=== PATIENT | female | born 1990 | race Two or more races ===

== ENCOUNTER 2024-09-03 10:05 | Inpatient (IN) | payer MEDICAID, SELFPAY ==
[2024-09-03] VITALS (14 sets, daily range): BP systolic 115–130; BP diastolic 51–79; PULSE 74–92; RESP 15–20; TEMP 36.7–37; O2SAT 98–100; BMI 29.9
[2024-09-03] MEDS: RINGERS LACTATED 1000 ML 1,000 ML 100 ML IV ×2 (10:48→12:09)
[2024-09-03 11:38] LABS: Basophils # (Auto) 0.0 Thou/mm3 (0.0-0.2); Basophils % (Auto) 0 % (0-2.5); Eosinophils # (Auto) 0.0 Thou/mm3 (0.0-0.5); Eosinophils % (Auto) 0 % (0-10); Hematocrit 36.9 % (36.0-46.0); Hemoglobin 12.7 g/dL (12.0-16.0); Immature Granulocytes Auto 0.09 Thou/mm3 (0.00-0.00); Lymphocytes # (Auto) 2.2 Thou/mm3 (1.0-4.8); Lymphocytes % (Auto) 22 % (10-50); Mean Corpuscular HGB Conc 34.4 g/dl (31.0-37.0); Mean Corpuscular Hemoglobin 29.9 pg (25.0-35.0); Mean Corpuscular Volume 87 fL (80-100); Monocytes # (Auto) 0.6 Thou/mm3 (0.0-0.8); Monocytes % (Auto) 5 % (0-12); Neutrophils # (Auto) 7.2 Thou/mm3 (1.8-7.7); Neutrophils % (Auto) 71 % (37-80); Nucleated Red Blood Cell # 0.00 Thou/mm3 (0.00-0.00); Nucleated Red Blood Cell % 0 /100 WBC (0); Platelet Count 295 Thou/mm3 (140-440); RDW Standard Deviation 44.5 fL (36.4-46.3); Red Blood Count 4.25 Miln/mm3 (4.00-5.20); White Blood Count 10.2 Thou/mm3 (3.6-11.0)
[2024-09-03] MEDS: METOCLOPRAMIDE INJ 5 MG/ML VIAL 2 ML 10 MG IVP (12:03)
[2024-09-03] MEDS: ceFAZolin/D5W 2 GM IV 2 GM/100 ML BAG IV (12:03)
[2024-09-03] MEDS: FAMOTIDINE INJ 10 MG/ML VIAL 2 ML 20 MG IV (12:05)
[2024-09-03 12:14] LABS: Syphilis Nonreactive (Nonreactive)
--- NOTE | 2024-09-03 12:44 | ESHP_ITS ---
Documentation for date of: 09/03/24 OB Labor/Induct. HPI History of Present Illness : 1 Term pregnancies: 0 pregnancies: 0 Living children: 0 History of Abortions: Spontaneous and Elective: 0 History of sections: Yes (x1) History of : No Date of last menstrual period: 12/05/23 ROSS: 09/10/24 Gestational age based on last menstrual period: 39 History of present illness: 34-year-old 3 para 1-0-1 1 at 39 weeks is admitted for repeat low- transverse . Patient had a previous for intolerance to labor. This has been uneventful History of Present Dating criteria: LMP confirmed by 1st trimester US Labs Labs: Unknown: RPR, Hepatitis B, Rubella Titre, HIV, Chlamydia, Gonorrhea, Herpes Type 1, Herpes Type 2, Group Beta Strep and Covid-19 Review of Systems Review of Systems Systems Reviewed: All systems reviewed, normal except as documented Constitutional Constitutional: Denies fever(s) Gastrointestinal Gastrointestinal: Reports abdominal pain Genitourinary Genitourinary: Reports as per HPI Past Medical History Surgical History SURGICAL: Positive Section (x1) Meds Home Medications and Allergies Allergies Allergy/AdvReac Type Severity Reaction Status Date / Time No Known Allergies Allergy Verified 06/10/22 06:06 OB Exam Physical Exam Vital signs: Temp Pulse Resp BP Pulse Ox 98.6 F 84 20 124/71 98 09/03/24 10:07 09/03/24 10:24 09/03/24 10:07 09/03/24 10:24 09/03/24 10:07 Constitutional Constitutional: no acute distress Routine HEENT Exam Head: Present normocephalic and atraumatic Eye: Present EOMI and PERRL ENT: Present mucous membranes moist Routine Neck Exam Neck: Present supple and trachea midline Routine Cardiovascular Exam Cardiovascular: Present RRR Routine Abdominal Exam Abdominal: Present soft and normoactive bowel sounds Routine Extremities Exam Extremities: Present full ROM Routine Skin Exam Skin: Present intact, dry and warm Routine Neurological Exam Neurological: Present alert, oriented X3 and CN II-XII intact Routine Psychiatric Exam Psychiatric: Present normal affect and normal thought process OB Results Labs 09/03/24 10:20 Labs: Short CBC 09/03/24 Range/Units 10:20 WBC 10.2 (3.6-11.0) Thou/mm3 Hgb 12.7 (12.0-16.0) g/dL Hct 36.9 (36.0-46.0) % Plt Count 295 (140-440) Thou/mm3 Impressions Impression: 24-year-old 3 para 1-0-1-1 at 39 weeks admitted for repeat low- transverse and bilateral salpingectomy. Anatomy within normal anterior placenta no PAS Hemoglobin 12.7 GTT within normal limits Uneventful at this time NIPT normal OB Assessment & Plan Additional Plan Additional Plan Comment: Admit for repeat low-transverse bilateral salpingectomy
[2024-09-03] MEDS: OXYTOCIN in NS 20 units 20 UNIT/1,000 ML BAG 125 UNIT IV (14:21)
[2024-09-03] MEDS: KETOROLAC INJ 30 MG/ML VIAL IVP ×2 (15:23→21:10)
[2024-09-03] MEDS: IBUPROFEN TAB 400 MG TABLET 800 MG PO (17:01)
[2024-09-03 18:40] LABS: Basophils # (Auto) 0.0 Thou/mm3 (0.0-0.2); Basophils % (Auto) 0 % (0-2.5); Eosinophils # (Auto) 0.0 Thou/mm3 (0.0-0.5); Eosinophils % (Auto) 0 % (0-10); Hematocrit 29.0 % (36.0-46.0); Hemoglobin 10.1 g/dL (12.0-16.0); Immature Granulocytes Auto 0.07 Thou/mm3 (0.00-0.00); Lymphocytes # (Auto) 1.8 Thou/mm3 (1.0-4.8); Lymphocytes % (Auto) 13 % (10-50); Mean Corpuscular HGB Conc 34.8 g/dl (31.0-37.0); Mean Corpuscular Hemoglobin 30.1 pg (25.0-35.0); Mean Corpuscular Volume 87 fL (80-100); Monocytes # (Auto) 0.6 Thou/mm3 (0.0-0.8); Monocytes % (Auto) 5 % (0-12); Neutrophils # (Auto) 11.0 Thou/mm3 (1.8-7.7); Neutrophils % (Auto) 81 % (37-80); Nucleated Red Blood Cell # 0.00 Thou/mm3 (0.00-0.00); Nucleated Red Blood Cell % 0 /100 WBC (0); Platelet Count 226 Thou/mm3 (140-440); RDW Standard Deviation 43.8 fL (36.4-46.3); Red Blood Count 3.35 Miln/mm3 (4.00-5.20); White Blood Count 13.6 Thou/mm3 (3.6-11.0)
[2024-09-03] MEDS: RINGERS LACTATED 1000 ML 1,000 ML 125 ML IV (21:15)
[2024-09-04] MEDS: IBUPROFEN TAB 400 MG TABLET 800 MG PO ×3 (01:20→20:02)
[2024-09-04 01:29] VITALS: BP 121/73; PULSE 83; RESP 19; TEMP 37.1; O2SAT 97
[2024-09-04 04:40] VITALS: BP 102/63; PULSE 80; RESP 18; TEMP 37.2; O2SAT 95
[2024-09-04] MEDS: HYDROcodone/APAP 5/325 TABLET 2 TAB PO ×2 (07:31→16:07)
--- NOTE | 2024-09-04 08:03 | PD.LDDELS ---
Data (Lan) Data Hx Section: Yes (x1) : 3 Term: 0 : 0 Livin Abortions: Spontaneous & Theraputic: 0 Delivery Data (Lan) Labor Data Induction/Augmentation Agent: None ROM date: 09/03/24 ROM time: 13:12 Amniotic membrane rupture type: Artificial Amniotic fluid description: Clear Delivery Data [place] delivery date: 09/03/24 [place] delivery time: 13:12 Gestational age (weeks): 39 Placenta delivery date: 09/03/24 Placenta delivery time: 13:13 Delivered by: Davey Goldman Delivery nurse: Obie Barton RN [place] nurse: Nelson Banda RN Marine Photographer at delivery: No Support person(s) at delivery: FOB Delivery Method Delivery method: Low Transverse Presentation: Vertex Anesthesia Type Anesthesia Type: None Placenta Placenta delivery description: Manual Removal Cord blood sent to lab: Yes cord blood collection: Cord Blood Type Episiotomy Episiotomy description: None EBL Estimated blood loss (ml): 300 Umbilical Cord cord description: 3 Vessels [place] Data (Lan) Data 's gender: Female weight (gms): 3280 g Weight (pounds): 7 lbs and 3.7 ozs length: 48.26 cm 1 minute: 9 5 minutes: 9
--- NOTE | 2024-09-04 08:05 | PD.LDPPPRG ---
Subjective Subjective Interval history: Patient was seen at the bedside denies any nausea vomiting. Patient has not started ambulating yet however is spontaneously voiding without any trouble after the [place] was removed. Patient has been tolerating oral diet. Pain is well-controlled with the current analgesics Exam Vital Signs Temp Pulse Resp BP Pulse Ox O2 Del Method 98.9 F 80 18 102/63 95 Room Air 09/04/24 04:40 09/04/24 04:40 09/04/24 04:40 09/04/24 04:40 09/04/24 04:40 09/04/24 04:40 Constitutional Constitutional: no acute distress Routine HEENT Exam Head: Present normocephalic and atraumatic Eye: Present EOMI and PERRL ENT: Present mucous membranes moist Routine Neck Exam Neck: Present supple and trachea midline Routine Respiratory Exam Respiratory: Present chest non-tender, lungs clear, normal breath sounds and no resp distress Routine Cardiovascular Exam Cardiovascular: Present RRR Routine Abdominal Exam Abdominal: Present soft and normoactive bowel sounds Routine Extremities Exam Extremities: Present full ROM Routine Skin Exam Skin: Present intact, dry and warm Routine Neurological Exam Neurological: Present alert, oriented X3 and CN II-XII intact Routine Psychiatric Exam Psychiatric: Present normal affect and normal thought process Objective Labs 09/03/24 18:23 Labs: Laboratory Results - last 24 hr 09/03/24 09/03/24 10:20 18:23 WBC 10.2 13.6 H RBC 4.25 3.35 L Hgb 12.7 10.1 L D Hct 36.9 29.0 L MCV 87 87 MCH 29.9 30.1 MCHC 34.4 34.8 RDW Std Deviation 44.5 43.8 Plt Count 295 226 D Neut % (Auto) 71 81 H Lymph % (Auto) 22 13 [place] % (Auto) 5 5 Eos % (Auto) 0 0 Baso % (Auto) 0 0 Neut # (Auto) 7.2 11.0 H Lymph # (Auto) 2.2 1.8 [place] # (Auto) 0.6 0.6 Eos # (Auto) 0.0 0.0 Baso # (Auto) 0.0 0.0 Immature Gran # (Auto) 0.09 H 0.07 H Absolute Nucleated RBC 0.00 0.00 Immature Gran % 1 H 1 H Nucleated RBC % 0 0 Syphilis Serology Nonreactive Blood Type A Positive Antibody Screen NEGATIVE Blood Bank Wristband ID Yes Assessment & Plan Assessment Comment Assessment comment: 34-year-old status post repeat low-transverse bilateral salpingectomy, postop day 1 Vital signs stable Meeting all postop milestones Plan Comment Plan Comment: Continue postop care Anticipate discharge tomorrow Time Spent With Patient Time: Total time spent is greater than 50% in coordination of care (as documented) at patient's floor/unit and/or counseling patient:
[2024-09-04 08:11] VITALS: BP 104/65; PULSE 82; RESP 18; TEMP 36.7; O2SAT 96
[2024-09-04 11:27] VITALS: BP 94/55; PULSE 77; RESP 20; TEMP 36.8; O2SAT 97
[2024-09-04 16:00] VITALS: BP 116/73; PULSE 81; RESP 20; TEMP 36.8; O2SAT 97
[2024-09-04 19:45] VITALS: BP 130/72; PULSE 81; RESP 18; TEMP 36.7; O2SAT 97
[2024-09-04] MEDS: SIMETHICONE 80 MG CHEW PO (20:02)
[2024-09-05 04:00] VITALS: BP 102/62; PULSE 77; RESP 20; TEMP 36.8; O2SAT 97
[2024-09-05] MEDS: IBUPROFEN TAB 400 MG TABLET 800 MG PO (04:40)
--- NOTE | 2024-09-05 07:52 | ESDS_ITS ---
DS: Providers Provider Date of admission: 09/03/24 10:05 Primary care physician: Physician No Primary/Family Admitting Provider: Davey Goldman MD Attending Provider on Admission: Davey Goldman MD Consults: 09/03/24 12:47 Referral Routine Comment: Attending Provider on DC: Davey Goldman MD Discharging Provider: Davey Goldman MD DS: Diagnosis Problem List Completed Was Problem List Reviewed/Reconciled?: Yes Summary/Hosp Course Brief History: 34-year-old 3 para 2, status post repeat low-transverse has been doing well over the last 2 days. Met all postop milestones and is ready to be discharged today Peripartum Data Delivery Method: Low Transverse Episiotomy Description: None Status at Discharge Cognitive/behavioral status at discharge: Stable Time Spent with Patient Time attestation: Total time spent providing and/or coordinating discharge services: Exam Vital Signs Temp Pulse Resp BP Pulse Ox O2 Del Method 98.2 F 77 20 102/62 97 Room Air 09/05/24 04:00 09/05/24 04:00 09/05/24 04:00 09/05/24 04:00 09/05/24 04:00 09/05/24 04:00 Constitutional Constitutional: no acute distress Routine HEENT Exam Head: Present normocephalic and atraumatic Eye: Present EOMI and PERRL ENT: Present mucous membranes moist Routine Neck Exam Neck: Present supple and trachea midline Routine Respiratory Exam Respiratory: Present chest non-tender, lungs clear, normal breath sounds and no resp distress Routine Cardiovascular Exam Cardiovascular: Present RRR Routine Abdominal Exam Abdominal: Present soft and normoactive bowel sounds Routine Extremities Exam Extremities: Present full ROM Routine Skin Exam Skin: Present intact, dry and warm Routine Neurological Exam Neurological: Present alert, oriented X3 and CN II-XII intact Routine Psychiatric Exam Psychiatric: Present normal affect and normal thought process Discharge Plan Plan Patient Disposition: HOME (Self Care) Prescriptions/Referrals Prescriptions/Med Rec: New acetaminophen-codeine 300-15 mg tablet 1 tab PO Q12H PRN (Reason: pain) Qty: 14 0RF ibuprofen 800 mg tablet 800 mg PO Q8H PRN (Reason: pain) Qty: 30 0RF Referrals: No Primary/Family,Physician [Primary Care Provider] - Patient/Caregiver Discharge Instructions Print Language: Trinidadian Stand Alone Forms: Margarita Award Info., Patient Portal Info Letter Discharge Order Discharge Orders: Discharge (Routine); Ordered 09/05/24 Ordered By: Davey Goldman Planned Discharge Date 09/05/24
[2024-09-05 08:15] VITALS: BP 108/67; PULSE 89; RESP 16; TEMP 36.8; O2SAT 99
--- NOTE | 2024-09-05 10:45 | CHAP ---
Patient was visited by the Spiritual Care Volunteer who also gave a Baby Yoder for the . (Volunteer was in the hospital from 09:30-10:45).
[2024-09-05] MEDS: HYDROcodone/APAP 5/325 TABLET 2 TAB PO (11:07)
== END 2024-09-05 13:30 | disposition home or self-care (01) | DRG 540 ==
LOC: S4SX 13:01 → S4NX 13:08
PROVIDERS: Admitting Provider Student in an Organized Health Care Education/Training Program; Visit Provider Student in an Organized Health Care Education/Training Program
DX: O34.211 Maternal care for low transverse scar from previous cesarean delivery (principal); Z37.0 Single live birth; Z3A.39 39 weeks gestation of pregnancy
CPT/HCPCS: 36415; 85025; 86780; 86850; 86900; 86901; J0689; J1885; J2274; J2371; J2590; J2765; J3010; J3490; J7120; A9270; J2270